=== PATIENT | female | born 1995 | race American Indian/Alaskan Native ===

== ENCOUNTER 2017-09-15 19:49 | Emergency (ER) | payer SELFPAY ==
[2017-09-15 19:49] VITALS: BMI 22.8
[2017-09-15] MEDS ORDERED: Sodium Chloride 0.9% 1,000 ML IV ONE (20:39)
--- NOTE | 2017-09-15 20:46 | C.PDOC ---
History Of Present Illness 21 year old female who is presents to the ER with a complaint of upper abdominal pain and vomiting. Patient's LMP was 07/28; denies vaginal bleeding, diarrhea, dysuria, or hematuria. Chief Complaint (Nursing): Abdominal Pain History Per: Patient History/Exam Limitations: no limitations Onset/Duration Of Symptoms: Days Current Symptoms Are (Timing): Still Present Location Of Pain/Discomfort: RUQ, Epigastric, LUQ Radiation Of Pain To:: None Quality Of Discomfort: Unable To Describe Associated Symptoms: Nausea, Vomiting. denies: Fever, Chills, Diarrhea, Urinary Symptoms Exacerbating Factors: None Alleviating Factors: None Recent travel outside of the [place]: No Abnormal Vaginal Bleeding: No Past Medical History Reviewed: Historical Data, Nursing Documentation, Vital Signs Vital Signs: Last Vital Signs Temp 98.1 F 09/15/17 20:07 Pulse 98 H 09/15/17 20:07 Resp 16 09/15/17 20:07 BP 165/95 H 09/15/17 20:07 Pulse Ox 99 09/15/17 22:52 - Medical History PMH: HTN Surgical History: No Surg Hx - [facility] Procedures CLOSURE SKIN & SUBCUTANEOUS NEC (01/08/14) Family History: States: Unknown Family Hx - Social History Hx Tobacco Use: No Hx Alcohol Use: Yes Hx Substance Use: No - Immunization History Hx Tetanus Toxoid Vaccination: Yes Review Of Systems Constitutional: Negative for: Fever, Chills Gastrointestinal: Positive for: Nausea, Vomiting, Abdominal Pain. Negative for : Diarrhea Genitourinary: Negative for: Dysuria, Hematuria, Vaginal Bleeding Physical Exam - Physical Exam Appears: Non-toxic, No Acute Distress Skin: Normal Color, Warm, Dry Head: Atraumatic, Normacephalic Oral Mucosa: Moist Chest: Symmetrical Cardiovascular: Rhythm Regular Respiratory: Normal Breath Sounds, No Rales, No Rhonchi, No Wheezing Gastrointestinal/Abdominal: Soft, Tenderness (Bilateral upper quadrant and epigastric), No Guarding, No Rebound Neurological/Psych: Oriented x3, Normal Speech, Other (No focal deficits) ED Course And Treatment - Laboratory Results Result Diagrams: 09/15/17 20:52 09/15/17 20:52 O2 Sat by Pulse Oximetry: 99 (Room air) Pulse Ox Interpretation: Normal Progress Note: Blood work, urinalysis, and abdominal US ordered. IV fluids administered. Disposition Counseled Patient/Family Regarding: Diagnosis - Disposition Referrals: [facility] [Outside] Disposition Time: 22:49 Condition: STABLE Prescriptions: Famotidine [Pepcid] 20 mg PO BID #20 tab Nitrofurantoin Macrocrystals [Macrobid] 100 mg PO BID #14 cap Instructions: (ED), Gastritis (GEN), Abdominal Pain in (ED ), Urinary Tract Infection in (ED) Forms: [facility] (Chinese), Gen Discharge Inst Malay - POA Present On Arrival: None - Clinical Impression Clinical Impression: Abdominal pain, Gastritis, , Urinary tract infection affecting care of mother in first trimester, antepartum - Scribe Statement The provider has reviewed the documentation as recorded by the Scribquique Schmidt All medical record entries made by the Jeraldibquique were at my direction and personally dictated by me. I have reviewed the chart and agree that the record accurately reflects my personal performance of the history, physical exam, medical decision making, and the department course for this patient. I have also personally directed, reviewed, and agree with the discharge instructions and disposition.
[2017-09-15 21:03] LABS: BASO # 0.1 K/uL (0.0-0.2); BASO % 0.7 % (0.0-2.0); EOS # 0.1 K/uL (0.0-0.7); EOS % 0.3 % (0.0-4.0); HEMATOCRIT 37.2 % (34.0-47.0); LYMPH # 1.2 K/uL (1.0-4.3); LYMPH % 6.8 % (20.0-40.0); MEAN CELL VOLUME 81.9 fL (81.0-99.0); MEAN CORPUSCULAR HEMOGLOBIN 26.1 pg (27.0-31.0); MEAN CORPUSCULAR HGB CONC 31.9 g/dL (33.0-37.0); MEAN PLATELET VOLUME 8.5 fL (7.2-11.7); MONO # 0.4 K/uL (0.0-0.8); MONO % 2.6 % (0.0-10.0); PLATELET COUNT 278 K/uL (130-400); RED CELL DISTRIBUTION WIDTH 13.5 % (11.5-14.5); WHITE BLOOD COUNT 17.1 K/uL (4.8-10.8)
[2017-09-15 21:10] LABS: ALKALINE PHOSPHATASE 74 U/L (38-126); ALT/SGPT 42 U/L (9-52); AST/SGOT 23 U/L (14-36); BILIRUBIN,TOTAL 0.6 mg/dL (0.2-1.3); BLOOD UREA NITROGEN 11 mg/dL (7-17); CALCIUM 8.1 mg/dl (8.6-10.4); CARBON DIOXIDE 26 mmol/L (22-30); CHLORIDE 104 mmol/L (98-107); GFR AFRICAN-AMERICAN > 60; GLUCOSE,RANDOM 82 mg/dL (65-105); POTASSIUM 3.9 mmol/L (3.6-5.2); SODIUM 140 mmol/L (132-148); TOTAL PROTEIN 8.8 g/dL (6.3-8.3)
[2017-09-15 21:28] LABS: NEUTROPHIL 90 % (50-75); TOTAL CELLS COUNTED 100
--- NOTE | 2017-09-15 22:37 | US ---
EXAM: US First Trimester, Transabdominal EXAM DATE/TIME: 09/15/2017 8:38 PM CLINICAL HISTORY: 21 years old, female; Pain; complicated by abdominal or pelvic pain; Epigastric; First trimester; Gestational age or lmp: 07/28/2017; ; Additional info: Abd pain TECHNIQUE: Real-time transabdominal obstetrical ultrasound of the maternal pelvis and a first trimester with image documentation. COMPARISON: There are no prior studies for comparison. FINDINGS: Gestation: There is a single gestational sac in uterus. Gestational sac has mean diameter 18.3 mm There is a pole, 5.5 mm in length. There is an embryonic heart rate of 117 beats per minute. A yolk sac is present, internal diameter measures 2.2 mm . Uterus: Uterus is anteflexed. The uterus measures approximately 11 x 5 x 5 cm. Cervix measures approximately 3 cm. Ovaries: Right ovary measures approximately 2.5 x 1.7 x 2.7 cm. Left ovary measures approximately 2.8 x 1.9 x 3 cm. There is flow in both ovaries on Doppler imaging. Free fluid: There is no free fluid. IMPRESSION: 6 weeks 2 days single living intrauterine gestation, estimated date of delivery 05/09/18
--- NOTE | 2017-09-15 22:42 | US ---
EXAM: US Abdomen Complete EXAM DATE/TIME: 09/15/2017 9:47 PM CLINICAL HISTORY: 21 years old, female; Pain; Abdominal pain; Epigastric; ; Additional info: Abd pain TECHNIQUE: Real-time ultrasound of the abdomen (complete) with image documentation. COMPARISON: There are no prior studies for comparison. FINDINGS: Liver: Liver is unremarkable. There is hepatopedal flow in the main portal vein. Gallbladder: Gallbladder is distended with no stones, sludge or wall thickening. Common bile duct: Common bile duct measures 3 mm in diameter. Pancreas: Pancreas is partially obscured by bowel gas. Visualized portions are unremarkable. Kidneys: There is a 2.4 cm diameter right lower pole renal cyst. Right kidney is otherwise unremarkable. Left kidney is unremarkable. There is no pelvocaliectasis. Spleen: Spleen is unremarkable. Aorta: Visualized portions of the aorta and inferior vena cava are unremarkable. Inferior vena cava: See above. IMPRESSION: Normal abdominal ultrasound, incidental right renal cyst Patient was not tender over the gallbladder
[2017-09-15 23:18] LABS: RBC URINE 8 /hpf (0-3); TRANSITIONAL EPITHIAL < 1 /hpf (0-3); URINE BACTERIA FEW (<OCC); URINE BILIRUBIN NEGATIVE (NEGATIVE); URINE BLOOD 2+ (NEGATIVE); URINE COLOR Yellow (YELLOW); URINE GLUCOSE (UA) NORMAL (Normal); URINE KETONE 2+ mg/dL (NEGATIVE); URINE PROTEIN 1+ mg/dL (NEGATIVE); WBC URINE 6 /hpf (0-5)
[2017-09-15 23:20] LABS: URINE LEUKOCYTE ESTERASE 1+ Leu/uL (Negative)
[2017-09-16] VITALS: BP 155/92; PULSE 95; RESP 18; TEMP 98.6; O2SAT 100
== END 2017-09-15 23:45 | disposition home or self-care (01) ==
LOC: C.ER 19:49
DX: O26.891 Other specified pregnancy related conditions, first trimester (principal); K29.70 Gastritis, unspecified, without bleeding; O23.41 Unspecified infection of urinary tract in pregnancy, first trimester; R10.11 Right upper quadrant pain; Z3A.01 Less than 8 weeks gestation of pregnancy
CPT/HCPCS: 76700; 76801; 80053; 81001; 83690; 84702; 84703; 85025; 87086; 96361; 96374; 96375; 99284; J2405; J7040

== ENCOUNTER 2017-10-31 09:07 | Emergency (ER) | payer SELFPAY ==
[2017-10-31 09:21] VITALS: BMI 24.0
--- NOTE | 2017-10-31 09:52 | C.PDOC ---
History Of Present Illness 21 y/o female A1 and history of pre eclampsia presents to ED with complaints of vaginal spotting and intermittent cramping abdominal pain since last night. Patient states she is 12 weeks and denies fever, chills, back pain, dysuria or any other complaints at this time. Time Seen by Provider: 10/31/17 09:23 Chief Complaint (Nursing): Female Genitourinary Past Medical History Vital Signs: Last Vital Signs Temp 98.6 F 10/31/17 09:16 Pulse 101 H 10/31/17 09:16 Resp 18 10/31/17 09:16 BP 134/94 H 10/31/17 09:16 Pulse Ox 97 10/31/17 09:16 - Medical History PMH: HTN Denies: Chronic Kidney Disease - [facility] Procedures CLOSURE SKIN & SUBCUTANEOUS NEC (01/08/14) Family History: States: Unknown Family Hx - Social History Hx Tobacco Use: No Hx Alcohol Use: Yes Hx Substance Use: No - Immunization History Hx Tetanus Toxoid Vaccination: Yes ED Course And Treatment O2 Sat by Pulse Oximetry: 97 Disposition - Disposition
--- NOTE | 2017-10-31 09:59 | C.PDOC ---
History Of Present Illness 21 y/o female A1 and history of pre eclampsia presents to ED with complaints of vaginal spotting and intermittent cramping abdominal pain since last night. Patient states she is 12 weeks and denies fever, chills, back pain, dysuria, nausea, vomiting or any other complaints at this time. LMP 07/28/17 Time Seen by Provider: 10/31/17 09:23 Chief Complaint (Nursing): Female Genitourinary History Per: Patient History/Exam Limitations: no limitations Onset/Duration Of Symptoms: Days Current Symptoms Are (Timing): Still Present Quality Of Discomfort: Cramping Past Medical History Reviewed: Historical Data, Nursing Documentation, Vital Signs Vital Signs: Last Vital Signs Temp 98.3 F 10/31/17 12:45 Pulse 81 10/31/17 12:45 Resp 18 10/31/17 12:45 BP 141/88 10/31/17 12:45 Pulse Ox 99 10/31/17 12:45 - Medical History PMH: HTN Surgical History: No Surg Hx - [facility] Procedures CLOSURE SKIN & SUBCUTANEOUS NEC (01/08/14) Family History: States: No Known Family Hx - Social History Hx Tobacco Use: No Hx Alcohol Use: Yes Hx Substance Use: No - Immunization History Hx Tetanus Toxoid Vaccination: Yes Review Of Systems Constitutional: Negative for: Fever, Chills Gastrointestinal: Positive for: Abdominal Pain. Negative for: Nausea, Vomiting Genitourinary: Positive for: Vaginal Bleeding Musculoskeletal: Negative for: Back Pain Skin: Negative for: Rash Physical Exam - Physical Exam Appears: Non-toxic, No Acute Distress Skin: Warm, Dry, No Rash Head: Atraumatic, Normacephalic Oral Mucosa: Moist Neck: Normal ROM, Supple Cardiovascular: Rhythm Regular, No Murmur Respiratory: Normal Breath Sounds, No Rales, No Rhonchi, No Wheezing Gastrointestinal/Abdominal: Soft, No Tenderness, No Guarding, No Rebound Extremity: Normal ROM, Capillary Refill (<2 seconds) Neurological/Psych: Oriented x3, Normal Speech, Normal Cognition ED Course And Treatment - Laboratory Results Result Diagrams: 10/31/17 09:57 10/31/17 09:57 O2 Sat by Pulse Oximetry: 97 (RA) Pulse Ox Interpretation: Normal Medical Decision Making Medical Decision Making: Plan: Blood work, UA, Trans Vaginal US ordered results of transvaginal consistent with missed . discussed with patient ; if no passage of tissue, go to ob/gyn doctor clinic by next wed. pt understands Disposition Counseled Patient/Family Regarding: Studies Performed, Diagnosis - Disposition Referrals: [facility] [Outside] Disposition: HOME/ ROUTINE Disposition Time: 12:24 Condition: STABLE Additional Instructions: Pelvic rest- nothing in vagina. You may continue to have cramps and some bleeding, and passage of tissue like substance. If you start to bleed heavily ( one pad per hr) or have worse pain, return to ER. You need to follow up with ob/gyn doctor in the next week, especially if nothing passes- would need to arrange to a d & c. Forms: [facility] (Indonesian), General Discharge Instructions - Clinical Impression Clinical Impression: Missed - PA / AVIONICS MECHANIC / Resident Statement MD/DO has reviewed & agrees with the documentation as recorded. - Scribe Statement The provider has reviewed the documentation as recorded by the Jeraldibquique Teresa All medical record entries made by the Jeraldibquique were at my direction and personally dictated by me. I have reviewed the chart and agree that the record accurately reflects my personal performance of the history, physical exam, medical decision making, and the department course for this patient. I have also personally directed, reviewed, and agree with the discharge instructions and disposition.
[2017-10-31 10:02] LABS: BASO % 0.4 % (0.0-2.0); EOS # 0.5 K/uL (0.0-0.7); HEMOGLOBIN 10.8 g/dL (11.0-16.0); LYMPH # 1.6 K/uL (1.0-4.3); LYMPH % 21.3 % (20.0-40.0); MEAN CELL VOLUME 82.7 fL (81.0-99.0); MEAN CORPUSCULAR HEMOGLOBIN 27.8 pg (27.0-31.0); MEAN CORPUSCULAR HGB CONC 33.6 g/dL (33.0-37.0); MEAN PLATELET VOLUME 8.3 fL (7.2-11.7); MONO # 0.3 K/uL (0.0-0.8); MONO % 4.5 % (0.0-10.0); NEUT # 5.1 K/uL (1.8-7.0); NEUT % 66.8 % (50.0-75.0); RBC 3.89 Mil/uL (3.80-5.20); WHITE BLOOD COUNT 7.7 K/uL (4.8-10.8)
[2017-10-31 10:10] LABS: SQUAMOUS EPITHIAL 9 /hpf (0-5); URINE BILIRUBIN NEGATIVE (NEGATIVE); URINE BLOOD 2+ (NEGATIVE); URINE CLARITY Hazy (Clear); URINE COLOR Yellow (YELLOW); URINE GLUCOSE (UA) NORMAL (Normal); URINE LEUKOCYTE ESTERASE 1+ Leu/uL (Negative); URINE NITRATE NEGATIVE (NEGATIVE); URINE PROTEIN 1+ mg/dL (NEGATIVE)
[2017-10-31 10:21] LABS: ALB/GLOB RATIO 1.3 (1.0-2.1); ALBUMIN 3.8 g/dL (3.5-5.0); ALT/SGPT 39 U/L (9-52); AST/SGOT 18 U/L (14-36); BLOOD UREA NITROGEN 7 mg/dL (7-17); CALCIUM 8.6 mg/dl (8.6-10.4); GFR AFRICAN-AMERICAN > 60; GFR NON-AFRICAN AMERICAN > 60
[2017-10-31] MEDS ORDERED: MethylPREDNISolone 40 mg Vial ONE (10:54)
[2017-10-31] MEDS ORDERED: Sodium Chloride 0.9% 500 ML IV ONE (10:54)
--- NOTE | 2017-10-31 11:32 | US ---
Indication: preg with ab pain and bleeding Comparison: 1st trimester ultrasound performed 09/15/17 Technique: Real-time transabdominal pelvic ultrasound was performed. In addition a transvaginal pelvic ultrasound was necessary to better depict pelvic anatomy. Findings: The uterus measures approximately 1.4 x 5.6 x 7 cm. Anteverted. Cervix length measures approximately 3.4 cm. There is a single intrauterine fetus present. Yolk sac is not seen. Irregular gestational sac contour. The gestational sac measures 4.5 cm and is compatible with a gestational age of 9 weeks 6 days. The crown-rump length measures 1.6 cm and is compatible with a gestational age of 8 weeks 0 days. There is heart motion is not detected. The right ovary measures 2.1 x 1.6 x 2.3 cm. The left ovary measures 2.7 x 1.4 x 2.0 cm. Blood flow was demonstrated to both ovaries. Impression: Irregular gestational sac contour. The gestational sac measures 4.5 cm and is compatible with a gestational age of 9 weeks 6 days. The crown-rump length measures 1.6 cm and is compatible with a gestational age of 8 weeks 0 days. Yolk sac is not seen. Correlate clinically. Right adnexal cystic structure measures approximately 1.5 x 1.7 x 1.8 cm.
[2017-10-31 12:46] VITALS: BP 141/88; PULSE 81; RESP 18; TEMP 98.3
[2017-10-31 22:44] VITALS: O2SAT 97
== END 2017-10-31 12:56 | disposition home or self-care (01) ==
LOC: C.ER 09:07
DX: O02.1 Missed abortion (principal); Z3A.09 9 weeks gestation of pregnancy

== ENCOUNTER 2017-11-14 12:15 | Inpatient (IN) | payer MEDICAID ==
[2017-11-14 12:25] VITALS: BMI 19.0
[2017-11-14] MEDS ORDERED: Sodium Chloride 0.9% 1,000 ML IV STA ×2 (13:07→15:37)
[2017-11-14] MEDS ORDERED: Morphine 4 MG/ML VIAL ONE (13:32)
[2017-11-14] MEDS ORDERED: Sodium Chloride 0.9% 1,000 ML ONE ×2 (13:32→15:43)
[2017-11-14 13:51] LABS: BASO # 0.1 K/uL (0.0-0.2); BASO % 0.4 % (0.0-2.0); EOS # 0.1 K/uL (0.0-0.7); EOS % 0.6 % (0.0-4.0); LYMPH # 1.1 K/uL (1.0-4.3); LYMPH % 5.6 % (20.0-40.0); MEAN CELL VOLUME 82.7 fL (81.0-99.0); MEAN CORPUSCULAR HEMOGLOBIN 27.8 pg (27.0-31.0); MEAN CORPUSCULAR HGB CONC 33.6 g/dL (33.0-37.0); MEAN PLATELET VOLUME 8.7 fL (7.2-11.7); MONO # 0.6 K/uL (0.0-0.8); NEUT # 17.1 K/uL (1.8-7.0); NEUT % 90.4 % (50.0-75.0); PLATELET COUNT 254 K/uL (130-400); RBC 4.59 Mil/uL (3.80-5.20); RED CELL DISTRIBUTION WIDTH 13.8 % (11.5-14.5)
[2017-11-14 13:54] LABS: HEMOGLOBIN 12.8 g/dL (11.0-16.0); WHITE BLOOD COUNT 18.9 K/uL (4.8-10.8)
[2017-11-14 14:01] LABS: PROTHROMBIN TIME 11.6 SECONDS (9.7-12.2)
[2017-11-14 14:07] LABS: ALB/GLOB RATIO 1.2 (1.0-2.1); ALBUMIN 4.4 g/dL (3.5-5.0); ALT/SGPT 63 U/L (9-52); AST/SGOT 28 U/L (14-36); BLOOD UREA NITROGEN 9 mg/dL (7-17); CALCIUM 8.8 mg/dl (8.6-10.4); GFR AFRICAN-AMERICAN > 60; GFR NON-AFRICAN AMERICAN > 60
[2017-11-14 14:18] LABS: BANDS 2 % (0-2); BASOPHIL 1 % (0-2); EOSINOPHIL 1 % (0-4); LYMPHOCYTE 5 % (20-40); MONOCYTE 2 % (0-10); NEUTROPHIL 89 % (50-75); PLATELET ESTIMATE NORMAL (NORMAL); TOTAL CELLS COUNTED 100
[2017-11-14 14:44] LABS: HCG,QUALITATIVE URINE POSITIVE (NEGATIVE)
--- NOTE | 2017-11-14 14:59 | C.PDOC ---
History Of Present Illness 22 y/o female presents to ED with complaints of pelvic cramping pain and vaginal bleeding since this morning. Patient states she had a spontaneous miscarriage on 11/02, bled from then until 11/08. Patient was instructed to follow up with clinic after miscarriage but states she did not go secondary to insurance problems. Patient reports bleeding reoccurred this morning which prompted visit to ED. Patient denies dysuraa, fever, chills, back pain, vaginal discharge or any other complaints at this time. Time Seen by Provider: 11/14/17 12:30 Chief Complaint (Nursing): Female Genitourinary History Per: Patient History/Exam Limitations: no limitations Onset/Duration Of Symptoms: Days Current Symptoms Are (Timing): Still Present Quality Of Discomfort: Cramping Past Medical History Reviewed: Historical Data, Nursing Documentation, Vital Signs Vital Signs: Last Vital Signs Temp 98.4 F 11/14/17 15:36 Pulse 84 11/14/17 15:36 Resp 18 11/14/17 15:36 BP 132/82 11/14/17 15:36 Pulse Ox 100 11/14/17 17:26 - Medical History PMH: HTN Surgical History: No Surg Hx - [facility] Procedures CLOSURE SKIN & SUBCUTANEOUS NEC (01/08/14) Family History: States: No Known Family Hx - Social History Hx Tobacco Use: No Hx Alcohol Use: No (PT DENIES) Hx Substance Use: No - Immunization History Hx Tetanus Toxoid Vaccination: Yes Hx Influenza Vaccination: No Hx Pneumococcal Vaccination: No Review Of Systems Constitutional: Negative for: Fever, Chills Gastrointestinal: Negative for: Nausea, Vomiting Genitourinary: Positive for: Vaginal Bleeding, Pelvic Pain. Negative for: Dysuria, Vaginal Discharge Skin: Negative for: Rash Physical Exam - Physical Exam Appears: Non-toxic, Other (Uncomfortable) Skin: Warm, Dry, No Rash Head: Atraumatic, Normacephalic Oral Mucosa: Moist Neck: Supple Cardiovascular: Rhythm Regular Respiratory: Normal Breath Sounds, No Rales, No Rhonchi, No Wheezing Gastrointestinal/Abdominal: Soft, No Tenderness, No Guarding, No Rebound Back: No CVA Tenderness Pelvic: No Vaginal Bleeding, No Cervix Open, Enlarged Uterus, Tender Uterus Neurological/Psych: Oriented x3 ED Course And Treatment - Laboratory Results Result Diagrams: 11/14/17 13:36 11/14/17 13:36 O2 Sat by Pulse Oximetry: 100 (RA) Pulse Ox Interpretation: Normal - CT Scan/US Transvaginal US Other Rad Studies (CT/US): Read By Radiologist, Radiology Report Reviewed CT/US Interpretation: Indication: poss retained products, spont abort. 11/02/17. Comparison: 1st trimester ultrasound/Ob transvaginal ultrasound performed 10/31/17. Technique: Transvaginal pelvic ultrasound. Findings: The uterus measures approximately 13.4 x 5.8 x 5.8 cm. Anteverted. Large cystic structure measuring approximately 9.3 x 2.5 x 2.7 cm within the endometrial canal extending into the cervix. No evidence of pole. Bilateral ovaries are not visualized. 1.4 x 1.5 x 1.9 cm cystic structure within the right adnexa. Impression: Large cystic structure measuring approximately 9.3 x 2.5 x 2.7 cm within the endometrial canal extending into the cervix. No evidence of pole. Recommend ROUTER OPERATOR consultation and follow-up as indicated. Bilateral ovaries are not visualized. 1.4 x 1.5 x 1.9 cm cystic structure within the right adnexa. Findings discussed with Carmella MONTANEZ on 11/14/17 at 3:14 p.m. Progress Note: Transvaginal US ordered, Blood work, Morphine and IV fluids Administered. Spoke to Dr.Malcolm CASAS crayon sawyer who came to ED, evaluated patient at bedsite and accepted patient to her service for admission and D&C. Disposition - Disposition Disposition: HOSPITALIZED Disposition Time: 16:55 Condition: FAIR - Clinical Impression Clinical Impression: Retained products of conception, Vaginal bleeding, Leucocytosis - PA / CATCHER HELPER / Resident Statement MD/DO has reviewed & agrees with the documentation as recorded. - Scribe Statement The provider has reviewed the documentation as recorded by the Chavez Teresa All medical record entries made by the Chvaez were at my direction and personally dictated by me. I have reviewed the chart and agree that the record accurately reflects my personal performance of the history, physical exam, medical decision making, and the department course for this patient. I have also personally directed, reviewed, and agree with the discharge instructions and disposition. Decision To Admit - Pt Status Changed To: Hospital Disposition Of: Inpatient - Admit Certification Admit to Inpatient:: After my assessment, the patient will require hospitalization for at least two midnights. This is because of the severity of symptoms shown, intensity of services needed, and/or the medical risk in this patient being treated as an outpatient. - InPatient: Physician Admission Certification: I certify that this patient requires 2 or more midnights of care for the following reason:: Patient will need IV antibiotics., will take more than 2 days. - . Bed Request Type: Regular Admitting Physician: Guera A Galen Patient Diagnosis: Retained products of conception, Vaginal bleeding, Leucocytosis
[2017-11-14 15:07] LABS: PH,URINE 7.5 (5.0-8.0); URINE BILIRUBIN LARGE (NEGATIVE); URINE BLOOD LARGE (NEGATIVE); URINE CLARITY Turbid (Clear); URINE COLOR RED (YELLOW); URINE GLUCOSE (UA) 250 mg/dL (Normal); URINE LEUKOCYTE ESTERASE MODERATE Leu/uL (Negative); URINE NITRATE POSITIVE (NEGATIVE); URINE PROTEIN >=300 mg/dL (NEGATIVE); URINE UROBILINOGEN >=8.0 mg/dL (0.2-1.0)
[2017-11-14 15:08] LABS: URINE BACTERIA OCC (<OCC)
--- NOTE | 2017-11-14 15:16 | US ---
Indication: poss retained products, spont abort. 11/02/17 Comparison: 1st trimester ultrasound/Ob transvaginal ultrasound performed 10/31/17 Technique: Transvaginal pelvic ultrasound Findings: The uterus measures approximately 13.4 x 5.8 x 5.8 cm. Anteverted. Large cystic structure measuring approximately 9.3 x 2.5 x 2.7 cm within the endometrial canal extending into the cervix. No evidence of pole. Bilateral ovaries are not visualized. 1.4 x 1.5 x 1.9 cm cystic structure within the right adnexa. Impression: Large cystic structure measuring approximately 9.3 x 2.5 x 2.7 cm within the endometrial canal extending into the cervix. No evidence of pole. Recommend INTEGRATION TECHNICIAN consultation and follow-up as indicated. Bilateral ovaries are not visualized. 1.4 x 1.5 x 1.9 cm cystic structure within the right adnexa. Findings discussed with Carmella MONTANEZ on 11/14/17 at 3:14 p.m.
[2017-11-14] MEDS ORDERED: HYDROmorphone 1 mg/ml ISec IVP STA (15:37)
[2017-11-14] MEDS ORDERED: Piperacillin/Tazobact 3.375 GM in Sodium Chloride 100 ML IVPB STA (16:18)
[2017-11-14] MEDS ORDERED: Lactated Ringer's 1,000 ML IV SCH (17:15)
[2017-11-14] MEDS ORDERED: Propofol 10 mg/ml Inj (20 ML) ONE ×2 (17:37→18:01)
[2017-11-14] MEDS ORDERED: Midazolam 2 MG/2 ML VIAL ONE (17:37)
[2017-11-14] MEDS ORDERED: Lactated Ringer's 1,000 ML IV ONE (17:41)
[2017-11-14] MEDS: Piperacill/Tazo 3.375gm in Dex 3.375 GM/50 ML BAG IVPB SCH (17:50)
[2017-11-14] MEDS ORDERED: Piperacillin/Tazobact 3.375 GM in Sodium Chloride 100 ML IVPB SCH (18:15)
--- NOTE | 2017-11-14 18:18 | PCM.SURG1 ---
Surgeon's Initial Post Op Note - Surgeon's Notes Surgeon: Guera Aaron MD Atmospheric Chemist: Valorie Wolfe MS-3 Type of Anesthesia: General Mask Anesthesia Administered By: Dr. Viveros Pre-Operative Diagnosis: 14 weeks 3 days; Missed ; incomplete Operative Findings: Anteverted uterus, 14 week, mobile. No adnexal masses. Placenta and amnioinc sac passed at time of EUA. Cervix 2 cm. fetus seen in sac. Uterus sounded to 12 cm Post-Operative Diagnosis: Completed Operation Performed: Uterine suction/sharp curettage Specimen/Specimens Removed: Products of conception Estimated Blood Loss: EBL {In ML}: 100 Blood Products Given: N/A Drains Used: No Drains Post-Op Condition: Good Date of Surgery/Procedure: 11/14/17 Time of Surgery/Procedure: 18:19
[2017-11-14] MEDS ORDERED: HYDROmorphone 0.5 mg/0.5 ml ISec IVP PRN (18:20)
[2017-11-14 18:52] LABS: MEAN CELL VOLUME 83.6 fL (81.0-99.0); MEAN CORPUSCULAR HEMOGLOBIN 27.2 pg (27.0-31.0); MEAN CORPUSCULAR HGB CONC 32.5 g/dL (33.0-37.0); RBC 3.04 Mil/uL (3.80-5.20); RED CELL DISTRIBUTION WIDTH 13.9 % (11.5-14.5); WHITE BLOOD COUNT 17.6 K/uL (4.8-10.8)
[2017-11-14 18:58] LABS: HEMOGLOBIN 8.3 g/dL (11.0-16.0)
--- NOTE | 2017-11-15 01:33 | CP.PCM.HP ---
<Sonya Madrid - Last Filed: 11/15/17 01:48> History of Present Illness - History of Present Illness History of Present Illness: Patient is a 22 year old LMP 07/28/2017 , known presents s/p ED visit in mid-October. At that time, patient was told that there was no heartbeat and wait for it to pass. Patient states the she was bleeding and passed tissue which started November 02. She bleed until the and bleeding stopped. Today vaginal bleeding started at 9am. She used 6-7 pads. Abdominal pain started at 11am this morning. Took motrin with no relief. Abdominal Pain was 10/10 on the pain scale which prompted the ED visit. OB Hx: 1. 2009 Primary C/S 2/2 pre-eclampsia, male infant, 7lbs 3 oz, needed blood transfusion 2. 2011 RLTCD at 36 weeks 2/2 pre-eclampsia, female , 4lbs, no complications 3. 2011 TOP at 9 weeks, D+C 4. 2015 RLTCD at 30 weeks 2/2 pre-eclampsia, female , 5lbs, needed blood transfusion 5. Current [facility] [employer] Hx: LMP 07/28/2017 [facility]: 15 x regular x 7 days Hx of Chlamydia in 2009 Denies hx of abnormal pap smears Allergies: NKDA Medications: Denies Medical Hx: Pre-eclampsia Surgical Hx: C/S x 3, D+C x 1 Social Hx: Denies alcohol, tobacco, drug use; Lives with FOB and 3 children Family Hx: Father - age 37, HTN, H/O CVA; Mother - age 39, healthy Present on Admission - Present on Admission Any Indicators Present on Admission: No Review of Systems - Review of Systems All systems: reviewed and no additional remarkable complaints except - Constitutional Constitutional: absent: Chills, Fever - Gastrointestinal Gastrointestinal: Abdominal Pain, Cramping. absent: Nausea, Vomiting - Menstruation Menstruation: Abnormal Vaginal Bleeding - Neurological Neurological: absent: Dizziness, Headaches, Weakness Past Patient History - Infectious Disease Hx of Infectious Diseases: None - Past Social History Smoking Status: Never Smoked - CARDIAC Hx Hypertension: Yes - PULMONARY Hx Respiratory Disorders: No - NEUROLOGICAL Hx Neurological Disorder: No - HEENT Hx HEENT Problems: No - RENAL Hx Chronic Kidney Disease: No - ENDOCRINE/METABOLIC Hx Endocrine Disorders: No - HEMATOLOGICAL/ONCOLOGICAL Hx Blood Disorders: No - INTEGUMENTARY Hx Dermatological Problems: No - MUSCULOSKELETAL/RHEUMATOLOGICAL Hx Musculoskeletal Disorders: No - GASTROINTESTINAL Hx Gastrointestinal Disorders: No - GENITOURINARY/GYNECOLOGICAL Hx Genitourinary Disorders: No - PSYCHIATRIC Hx Substance Use: No - SURGICAL HISTORY Hx Section: Yes (X3) Other/Comment: X 3 - ANESTHESIA Hx Anesthesia: Yes Meds Allergies/Adverse Reactions: Allergies Allergy/AdvReac Type Severity Reaction Status Date / Time No Known Allergies Allergy Verified 11/14/17 12:24 Physical Exam - Constitutional Appears: Well, No Acute Distress - Head Exam Head Exam: ATRAUMATIC, NORMAL INSPECTION - Eye Exam Eye Exam: EOMI, Normal appearance - ENT Exam ENT Exam: Mucous Membranes Moist - Respiratory Exam Respiratory Exam: NORMAL BREATHING PATTERN - Cardiovascular Exam Cardiovascular Exam: REGULAR RHYTHM - GI/Abdominal Exam GI & Abdominal Exam: Soft, Tenderness - Exam Additional comments: SSE: Thick dark red clots in posterior vaginal vault, no active bleeding SVE: 1 cm dilated - Extremities Exam Extremities exam: Positive for: normal inspection - Neurological Exam Neurological exam: Alert, Oriented x3 - Psychiatric Exam Psychiatric exam: Normal Affect, Normal Mood - Skin Skin Exam: Dry, Normal Color, Warm Results - Vital Signs Recent Vital Signs: Last Vital Signs Temp 98.9 F 11/14/17 20:33 Pulse 76 11/14/17 20:33 Resp 20 11/14/17 20:33 BP 130/89 11/14/17 20:33 Pulse Ox 98 11/14/17 20:33 - Labs Result Diagrams: 11/14/17 18:46 11/14/17 13:36 Labs: Laboratory Results - last 24 hr 11/14/17 11/14/17 11/14/17 13:36 13:36 13:36 WBC 18.9 H D RBC 4.59 Hgb 12.8 D Hct 38.0 MCV 82.7 MCH 27.8 MCHC 33.6 RDW 13.8 Plt Count 254 MPV 8.7 Neut % (Auto) 90.4 H Lymph % (Auto) 5.6 L Hawkins % (Auto) 3.0 Eos % (Auto) 0.6 Baso % (Auto) 0.4 Neut # (Auto) 17.1 H Lymph # (Auto) 1.1 Hawkins # (Auto) 0.6 Eos # (Auto) 0.1 Baso # (Auto) 0.1 Neutrophils % (Manual) 89 H Band Neutrophils % 2 Lymphocytes % (Manual) 5 L Monocytes % (Manual) 2 Eosinophils % (Manual) 1 Basophils % (Manual) 1 Platelet Estimate Normal RBC Morphology Normal PT 11.6 INR 1.0 APTT 24 Sodium 138 Potassium 3.9 Chloride 96 L Carbon Dioxide 28 Anion Gap 17 BUN 9 Creatinine 0.5 L Est GFR ( Amer) > 60 Est GFR (Non-Af Amer) > 60 Random Glucose 96 Calcium 8.8 Total Bilirubin 0.6 AST 28 ALT 63 H D Alkaline Phosphatase 64 Total Protein 8.1 Albumin 4.4 Globulin 3.6 Albumin/Globulin Ratio 1.2 Beta HCG, Quant 521.17 Urine Color Urine Clarity Urine pH Ur Specific [place] Urine Protein Urine Glucose (UA) Urine Ketones Urine Blood Urine Nitrate Urine Bilirubin Urine Urobilinogen Ur Leukocyte Esterase Urine WBC (Auto) Urine RBC (Auto) Urine Bacteria Urine HCG, Qual Blood Type Antibody Screen 11/14/17 11/14/17 11/14/17 13:36 14:15 18:46 WBC 17.6 H RBC 3.04 L Hgb 8.3 L D Hct 25.4 L MCV 83.6 MCH 27.2 MCHC 32.5 L RDW 13.9 Plt Count 205 MPV 9.0 Neut % (Auto) Lymph % (Auto) Hawkins % (Auto) Eos % (Auto) Baso % (Auto) Neut # (Auto) Lymph # (Auto) Hawkins # (Auto) Eos # (Auto) Baso # (Auto) Neutrophils % (Manual) Band Neutrophils % Lymphocytes % (Manual) Monocytes % (Manual) Eosinophils % (Manual) Basophils % (Manual) Platelet Estimate RBC Morphology PT INR APTT Sodium Potassium Chloride Carbon Dioxide Anion Gap BUN Creatinine Est GFR ( Amer) Est GFR (Non-Af Amer) Random Glucose Calcium Total Bilirubin AST ALT Alkaline Phosphatase Total Protein Albumin Globulin Albumin/Globulin Ratio Beta HCG, Quant Urine Color Red Urine Clarity Turbid Urine pH 7.5 Ur Specific [place] 1.015 Urine Protein >=300 Urine Glucose (UA) 250 Urine Ketones 40 Urine Blood Large Urine Nitrate Positive H Urine Bilirubin Large Urine Urobilinogen >=8.0 Ur Leukocyte Esterase Moderate Urine WBC (Auto) 12 H Urine RBC (Auto) 5000 H Urine Bacteria Occ H Urine HCG, Qual Positive Blood Type B POSITIVE Antibody Screen Negative Assessment & Plan - Assessment and Plan (Free Text) Assessment: 22 year old at 14 weeks 3 days presents with Missed ; incomplete . TVUS showed large cystic structure measuring approximately 9.3 x 2.5 x 2.7 cm within the endometrial canal extending into the cervix. No evidence of pole (see full report). Plan: -Stable, afebrile -Leukocytosis, WBC 18.9 on admission -Hemoglobin is stable, 12.8 -Antibiotics: Doxycycline 100mg PO Q12H, Zosyn 3.375mg Q8H IV -Lactated Ringers at 125cc/hr -Rh positive, no rhogam needed -OR for suction D+C -Consents signed -Plan discussed with Dr Galen Madrid DO PGY-1 <Guera Aaron A - Last Filed: 11/15/17 02:45> Results - Vital Signs Recent Vital Signs: Last Vital Signs Temp 98.9 F 11/14/17 20:33 Pulse 76 11/14/17 20:33 Resp 20 11/14/17 20:33 BP 130/89 11/14/17 20:33 Pulse Ox 98 11/14/17 20:33 - Labs Result Diagrams: 11/14/17 18:46 11/14/17 13:36 Labs: Laboratory Results - last 24 hr 11/14/17 11/14/17 11/14/17 13:36 13:36 13:36 WBC 18.9 H D RBC 4.59 Hgb 12.8 D Hct 38.0 MCV 82.7 MCH 27.8 MCHC 33.6 RDW 13.8 Plt Count 254 MPV 8.7 Neut % (Auto) 90.4 H Lymph % (Auto) 5.6 L Hawkins % (Auto) 3.0 Eos % (Auto) 0.6 Baso % (Auto) 0.4 Neut # (Auto) 17.1 H Lymph # (Auto) 1.1 Hawkins # (Auto) 0.6 Eos # (Auto) 0.1 Baso # (Auto) 0.1 Neutrophils % (Manual) 89 H Band Neutrophils % 2 Lymphocytes % (Manual) 5 L Monocytes % (Manual) 2 Eosinophils % (Manual) 1 Basophils % (Manual) 1 Platelet Estimate Normal RBC Morphology Normal PT 11.6 INR 1.0 APTT 24 Sodium 138 Potassium 3.9 Chloride 96 L Carbon Dioxide 28 Anion Gap 17 BUN 9 Creatinine 0.5 L Est GFR ( Amer) > 60 Est GFR (Non-Af Amer) > 60 Random Glucose 96 Calcium 8.8 Total Bilirubin 0.6 AST 28 ALT 63 H D Alkaline Phosphatase 64 Total Protein 8.1 Albumin 4.4 Globulin 3.6 Albumin/Globulin Ratio 1.2 Beta HCG, Quant 521.17 Urine Color Urine Clarity Urine pH Ur Specific [place] Urine Protein Urine Glucose (UA) Urine Ketones Urine Blood Urine Nitrate Urine Bilirubin Urine Urobilinogen Ur Leukocyte Esterase Urine WBC (Auto) Urine RBC (Auto) Urine Bacteria Urine HCG, Qual Blood Type Antibody Screen 11/14/17 11/14/17 11/14/17 13:36 14:15 18:46 WBC 17.6 H RBC 3.04 L Hgb 8.3 L D Hct 25.4 L MCV 83.6 MCH 27.2 MCHC 32.5 L RDW 13.9 Plt Count 205 MPV 9.0 Neut % (Auto) Lymph % (Auto) Hawkins % (Auto) Eos % (Auto) Baso % (Auto) Neut # (Auto) Lymph # (Auto) Hawkins # (Auto) Eos # (Auto) Baso # (Auto) Neutrophils % (Manual) Band Neutrophils % Lymphocytes % (Manual) Monocytes % (Manual) Eosinophils % (Manual) Basophils % (Manual) Platelet Estimate RBC Morphology PT INR APTT Sodium Potassium Chloride Carbon Dioxide Anion Gap BUN Creatinine Est GFR ( Amer) Est GFR (Non-Af Amer) Random Glucose Calcium Total Bilirubin AST ALT Alkaline Phosphatase Total Protein Albumin Globulin Albumin/Globulin Ratio Beta HCG, Quant Urine Color Red Urine Clarity Turbid Urine pH 7.5 Ur Specific [place] 1.015 Urine Protein >=300 Urine Glucose (UA) 250 Urine Ketones 40 Urine Blood Large Urine Nitrate Positive H Urine Bilirubin Large Urine Urobilinogen >=8.0 Ur Leukocyte Esterase Moderate Urine WBC (Auto) 12 H Urine RBC (Auto) 5000 H Urine Bacteria Occ H Urine HCG, Qual Positive Blood Type B POSITIVE Antibody Screen Negative Attending/Attestation - Attestation I have personally seen and examined this patient.: Yes I have fully participated in the care of the patient.: Yes I have reviewed all pertinent clinical information: Yes Notes (Text): 11/15/17 02:43 Late entry - patient seen and examined at 11/14/2016 approximately 1630 hours I agree with the events as described above. Consents signed, dated, witnessed and placed in chart.
[2017-11-15] MEDS: Piperacill/Tazo 3.375gm in Dex 3.375 GM/50 ML BAG IVPB SCH ×3 (03:14→19:53)
--- NOTE | 2017-11-15 05:47 | OP ---
PROCEDURE DATE: SURGEON: Guera Aaron MD ANESTHESIOLOGIST: Dr. Viveros. ANESTHESIA: General with mask. PREOPERATIVE DIAGNOSIS: 14 weeks 3 days gestation, missed / incomplete . POSTOPERATIVE DIAGNOSIS: Complete . OPERATIVE FINDINGS: The placenta and the amniotic sac containing the fetus was passed at the time of prepping the perineum and the vagina. After securing the specimen, examination under anesthesia was performed, anteverted uterus approximately 14 weeks in size and very mobile. No adnexal masses. Cervix dilated to 2-3 cm PROCEDURE PERFORMED: Uterine suction and sharp curettage. SPECIMENS: Products of conception. ESTIMATED BLOOD LOSS: 100 mL. BLOOD PRODUCTS: None. DRAINS: None COMPLICATIONS: None. DESCRIPTION OF PROCEDURE: The patient was taken to the operating room after having obtained informed consent for the anticipated procedure. She was placed on the operating room table where anesthesia was administered. Once assuring an adequate level of anesthesia, the patient's legs were placed in candy-cane stirrups. Examination under anesthesia was performed with the findings as above. The patient's perineum was prepped and she was draped in the usual sterile fashion. Uterine catheterization was performed and clear urine was obtained. A weighted speculum was placed in the posterior vaginal vault. Using a Long retractor anteriorly, the cervix was visualized; it was grasped on the anterior lip using ring forceps. The uterus was sounded to 12 cm. Suction curette size 11 cm was inserted and suction device was activated . The uterus was emptied of any additional debris. Sharp curettage was then performed until a gritty texture was obtained. The uterus was noted to be contracted and firm around the instruments. Bimanual massage was performed; the uterus was noted to be contracted about 12 weeks and firm. Hemostasis was assured. All instruments were removed. The patient was extubated. She was allowed to arise from anesthesia and transferred to the recovery room in stable condition. Guera Aaron MD [facility]EREarline
[2017-11-15 07:50] LABS: BASO # 0.1 K/uL (0.0-0.2); BASO % 0.4 % (0.0-2.0); EOS # 0.3 K/uL (0.0-0.7); EOS % 2.2 % (0.0-4.0); HEMOGLOBIN 8.9 g/dL (11.0-16.0); LYMPH # 2.4 K/uL (1.0-4.3); LYMPH % 16.3 % (20.0-40.0); MEAN CELL VOLUME 82.9 fL (81.0-99.0); MEAN CORPUSCULAR HGB CONC 33.8 g/dL (33.0-37.0); MEAN PLATELET VOLUME 9.1 fL (7.2-11.7); MONO # 0.6 K/uL (0.0-0.8); NEUT # 11.3 K/uL (1.8-7.0); NEUT % 77.1 % (50.0-75.0); NRBC % 0.2 % (0.0-2.0); RBC 3.19 Mil/uL (3.80-5.20); RED CELL DISTRIBUTION WIDTH 13.9 % (11.5-14.5); WHITE BLOOD COUNT 14.6 K/uL (4.8-10.8)
--- NOTE | 2017-11-15 11:13 | CP.PCM.PN ---
<Destini Schmidt - Last Filed: 11/15/17 14:04> Subjective - Date & Time of Evaluation Date of Evaluation: 11/15/17 Time of Evaluation: 07:00 - Subjective Subjective: Patient seen and examined at bedside and in no acute distress. Patient says her abdominal pain has decreased from 10/10 yesterday to 3/10 today. Patient says she went through 3 pads overnight. Patient was able to eat last night with no nausea or vomiting. Patient denies any shortness of breath, chest pain, fevers or chills. Objective - Vital Signs/Intake and Output Vital Signs (last 24 hours): Temp Pulse Resp BP Pulse Ox 98 F 82 18 140/86 99 11/15/17 08:00 11/15/17 08:00 11/15/17 08:00 11/15/17 08:00 11/15/17 08:00 - Medications Medications: Current Medications Doxycycline Hyclate (Doryx) 100 mg PO Q12H SANJAY Last Admin: 11/15/17 06:58 Dose: 100 mg Lactated Ringer's (Lactated Ringer's) 1,000 mls @ 125 mls/hr IV .Q8H SANJAY Piperacillin Sod/Tazobactam Sod (Zosyn 3.375 Gm Iv Premix) 3.375 gm in 50 mls @ 100 mls/hr IVPB Q8H SANJAY Last Admin: 11/15/17 03:14 Dose: 100 mls/hr Ibuprofen (Motrin Tab) 600 mg PO Q6H PRN PRN Reason: Pain, Mild (1-3) Last Admin: 11/15/17 11:06 Dose: 600 mg - Labs Labs: 11/15/17 07:13 11/14/17 13:36 PT 11.6 SECONDS (9.7-12.2) 11/14/17 13:36 INR 1.0 11/14/17 13:36 APTT 24 SECONDS (21-34) 11/14/17 13:36 - Constitutional Appears: Non-toxic, No Acute Distress - Head Exam Head Exam: ATRAUMATIC, NORMAL INSPECTION, NORMOCEPHALIC - Eye Exam Eye Exam: EOMI, Normal appearance - ENT Exam ENT Exam: Mucous Membranes Moist - Respiratory Exam Respiratory Exam: Clear to Ausculation Bilateral, NORMAL BREATHING PATTERN. absent: Wheezes, Respiratory Distress, Stridor - Cardiovascular Exam Cardiovascular Exam: REGULAR RHYTHM, RRR, +S1, +S2 - GI/Abdominal Exam GI & Abdominal Exam: Soft, Normal Bowel Sounds. absent: Tenderness - Extremities Exam Extremities Exam: Normal Inspection. absent: Pedal Edema - Neurological Exam Neurological Exam: Awake, Oriented x3 - Psychiatric Exam Psychiatric exam: Normal Affect, Normal Mood - Skin Skin Exam: Intact, Normal Color, Warm Assessment and Plan - Assessment and Plan (Free Text) Assessment: 22 year old s/p D&C POD#1 1. stable, afebrile 2. continue Zosyn 3.375gm q8h and Doxycycline 100mg po q12h 3. WBC downtrending 18.9--14.6, monitor 4. Anemia- H/H from 12.8/38 to 8.3/25.4 to 8.9/26.4, manage with Feosol 325mg po BID, monitor 5. Pain management with Motrin 600mg po q6h 6. Discussed with Dr. Galen Schmidt, PGY1 <Guera Aaron - Last Filed: 11/16/17 20:57> Objective - Vital Signs/Intake and Output Vital Signs (last 24 hours): Temp Pulse Resp BP Pulse Ox 97.3 F L 81 18 143/89 97 11/16/17 07:56 11/16/17 07:56 11/16/17 07:56 11/16/17 07:56 11/16/17 07:56 - Labs Labs: 11/16/17 07:54 11/14/17 13:36 PT 11.6 SECONDS (9.7-12.2) 11/14/17 13:36 INR 1.0 11/14/17 13:36 APTT 24 SECONDS (21-34) 11/14/17 13:36 Attending/Attestation - Attestation I have personally seen and examined this patient.: Yes I have fully participated in the care of the patient.: Yes I have reviewed all pertinent clinical information, including history, physical exam and plan: Yes Notes (Text): 11/16/17 20:47 Late entry Patient was seen and evaluated 11/15/2017 approximately 1330 hours. Patient was received in bed, room 450 in good spirits. Reported no abdominal pain; minimal vaginal bleeding. Vitals signs had been reviewed and had been within normal limits. I agree with the findings of her physical exam; laboratory data had been reviewed by me personally. Discussion at that time focussed on contraception. Patient was interested in the IUD for long-term contraception; but implored to receive some method of contraception upon discharge. She had used depo-Provera in the past x approximately 6 weeks. Despite the inconvenience of the irregular vaginal bleeding, a very common side effect, after a lengthy discussion of other methods , she asked to have the shot administered at the time of discharge, with the plan to find a obstetrician gynecologist provider in the ensuing 12 weeks, at which time her next shot would be due. She hopes to have the IUD inserted by then. Assessment: 22 y.o. P1203, h/o C/S x 3, S/P suction/sharp curettage for incomplete . Patient has been afebrile; all vital signs stable. WBC is trending down. Contraception counseling as above. Patient is clinically stable. Plan: 1) Continue present management 2) depo-Provera 150 mg IM x 1, at time of discharge 3) Anticipate discharge home 11/16/17 11/16/17 20:54
[2017-11-15] MEDS ORDERED: MedroxyPROGESTERone Depo 150 mg/mL inj IM ONE (16:00)
[2017-11-16] MEDS: Piperacill/Tazo 3.375gm in Dex 3.375 GM/50 ML BAG IVPB SCH (04:34)
[2017-11-16 07:58] VITALS: BP 143/89; PULSE 81; RESP 18; TEMP 97.3; O2SAT 97
[2017-11-16 08:26] LABS: BASO # 0.1 K/uL (0.0-0.2); BASO % 0.8 % (0.0-2.0); EOS # 0.5 K/uL (0.0-0.7); EOS % 6.1 % (0.0-4.0); HEMOGLOBIN 9.2 g/dL (11.0-16.0); LYMPH # 2.7 K/uL (1.0-4.3); LYMPH % 30.3 % (20.0-40.0); MEAN CELL VOLUME 83.2 fL (81.0-99.0); MEAN CORPUSCULAR HEMOGLOBIN 28.5 pg (27.0-31.0); MEAN CORPUSCULAR HGB CONC 34.3 g/dL (33.0-37.0); MEAN PLATELET VOLUME 9.2 fL (7.2-11.7); MONO # 0.4 K/uL (0.0-0.8); MONO % 4.4 % (0.0-10.0); NEUT # 5.3 K/uL (1.8-7.0); NEUT % 58.4 % (50.0-75.0); NRBC % 0.1 % (0.0-2.0); RBC 3.22 Mil/uL (3.80-5.20); RED CELL DISTRIBUTION WIDTH 13.9 % (11.5-14.5)
[2017-11-16] MEDS ORDERED: MedroxyPROGESTERone Depo 150 mg/mL inj IM ONE (10:00)
[2017-11-16] MEDS ORDERED: Influenza Vaccine 60 mcg/0.5 mL SYR (4YR UP) IM ONE (11:15)
--- NOTE | 2017-11-16 22:30 | DS ---
DISCHARGE DIAGNOSIS: Incomplete status post dilation and curettage. PROCEDURE PERFORMED ON ADMISSION: Suction dilation and curettage by Dr. Aaron. HOSPITAL COURSE: The patient is a 22-year-old female who presented to the emergency room with complaints of heavy vaginal bleeding and she had being seen in the ER prior in mid October as well. The patient continued to have heavy vaginal bleeding and she underwent transvaginal ultrasound, which showed a cystic structure in the endometrial canal extending into the cervix with no pole, a diagnosis of an incomplete was thereafter accomplished. The patient was thereafter taken to the OR by Dr. Aaron for a suction D and C. Her white cell count on admission was noted to be elevated at 18.9 thousand per microliters. Postoperatively, she was placed on Zosyn and doxycycline. The white cell count was monitored and it continued to improve. On postop day #2, that is on 11/16/2017, the patient had a normal white cell count, her hemoglobin was stable at 9.2 g/dL. The patient was tolerating regular diet. She was ambulating and voiding without any problems. She denied any fevers, chills, nausea, vomiting, chest pain, shortness of breath. PHYSICAL EXAMINATION: LUNGS: Clear to auscultation bilaterally. HEART: S1 and S2 present with regular rate and rhythm. ABDOMEN: Soft and nontender. EXTREMITIES: There was no calf tenderness. PLAN: The patient was thereafter discharged on postop day #2. A script for doxycycline 100 mg twice daily for 7 days was given to the patient at the time of discharge. She was advised to take iron once daily and to follow up with [facility] in 1 week. The patient was also given 1 dose of Depo-Provera injection 150 mg IM as she had requested that as her means of contraception until her followup with her [facility]. Moe Bush MD
== END 2017-11-16 11:22 | disposition home or self-care (01) | DRG 381 ==
LOC: C.ER 12:15 → C.4M 17:02
PROVIDERS: ADMIT Obstetrics & Gynecology; ATTEND Obstetrics & Gynecology
PROC: 10D17ZZ Extraction of Products of Conception, Retained, Via Natural or Artificial Opening (ICD-10-PCS; principal; 2017-11-14 17:30)
DX: O03.4 Incomplete spontaneous abortion without complication (principal); O99.012 Anemia complicating pregnancy, second trimester; Z3A.14 14 weeks gestation of pregnancy